=== PATIENT | male | born 1940 | race Caucasian/White ===

== ENCOUNTER → 2019-06-18 | Day surgery (SDC) | payer MEDICARE, BC | END | disposition home or self-care (01) | LOC: MSO 11:10 | DX: H25.11 Age-related nuclear cataract, right eye (principal); I10 Essential (primary) hypertension; E78.00 Pure hypercholesterolemia, unspecified; Z79.899 Other long term (current) drug therapy; Z87.891 Personal history of nicotine dependence; Z96.652 Presence of left artificial knee joint | CPT/HCPCS: 00142; J0171; J2250; V2632 ==